=== PATIENT | male | born 1995 | race Caucasian/White ===

== ENCOUNTER 2016-10-22 08:54 | Observation (INO) | payer OTHER ==
[~2016-10-22] VITALS: Ht 182.9 cm; Wt 159.1 kg
[~2016-10-22 08:54] MED LIST: 0.9% SODIUM CHLORIDE 10 ML VIAL IVP ONE; CeFAZolin 2 GM/DEXTROSE 50 ML IV ONE; DEXAMETHASONE SOD PHOS 4 MG/ML VIAL IVP ONE; FentaNYL CITRATE-PF 250 MCG/5 ML VIAL IVP ONE; GUM MASTIC/STORAX/MSAL/ALCOHOL LIQUID 0.67 ML VIAL TP ONE; LIDOCAINE HCL/PF 2% 5 ML VIAL IM ONE; MIDAZOLAM HCL 2 MG/2 ML VIAL IVP ONE; ONDANSETRON HCL 4 MG/2 ML VIAL IVP ONE; PROPOFOL 1% 20 ML VIAL IVP ONE; RINGERS SOLUTION,LACTATED 1,000 ML IV ONE; SUCCINYLCHOLINE CHLORIDE 20 MG/ML 10 ML VIAL IVP ONE
[2016-10-22] MEDS ORDERED: RINGERS SOLUTION,LACTATED 1,000 ML IV ONE (09:00)
[2016-10-22 09:32] LABS: BASOPHILS % (AUTO) 0.6 % (0.0-2.0); EOSINOPHILS % (AUTO) 2.1 % (1.0-6.0); HEMATOCRIT 46.4 % (41-53); HEMOGLOBIN 14.9 g/dL (13.5-17.5); LYMPHOCYTES # (AUTO) 3.9 K/uL (1.0-4.8); LYMPHOCYTES % (AUTO) 37.7 % (22.0-44.0); MEAN CORPUSCULAR HEMOGLOBIN 26.4 pg (26.0-34.0); MEAN CORPUSCULAR HGB CONC 32.2 G/dL (31.0-37.0); MEAN CORPUSCULAR VOLUME 82 fL (80-100); MONOCYTES # (AUTO) 0.8 K/uL (0.1-1.0); MONOCYTES % (AUTO) 7.6 % (2.0-9.0); NEUTROPHILS # (AUTO) 5.4 K/uL (1.8-7.7); PLATELET COUNT (AUTO) 258 K/uL (150-450); RED BLOOD CELL COUNT(AUTO) 5.66 MIL/uL (4.50-5.90); RED CELL DISTRIBUTION WIDTH 14.5 % (11.5-14.5); WHITE BLOOD COUNT (AUTO) 10.5 K/uL (4.5-11.0)
[2016-10-22] MEDS: BUPIVACAINE HCL/PF 0.5% 30 ML VIAL ONE ×2 (09:32→11:37)
[2016-10-22] MEDS: VANCOMYCIN HCL 1 GM/VIAL ONE ×2 (09:32→11:37)
[2016-10-22 09:40] LABS: ANION GAP 10 mmol/L (8-16); CALCIUM, TOTAL 8.6 mg/dL (8.8-10.5); CARBON DIOXIDE 25 mmol/L (22-29); CHLORIDE 105 mmol/L (98-107); CREATININE 0.91 mg/dL (0.60-1.30); GLOMERULAR FILTR. RATE CALC > 60 mL/min (>60); POTASSIUM 3.9 mmol/L (3.5-5.1); SODIUM SERUM 140 mmol/L (136-145); UREA NITROGEN, BLOOD 10 mg/dL (7-18)
[2016-10-22 09:44] LABS: INR 0.9 (0.9-1.1)
[2016-10-22 09:46] LABS: ALANINE AMINOTRANSFERASE 43 U/L (12-78); ALBUMIN 3.5 g/dL (3.4-5.0); ASPARTATE AMINOTRANSFERASE 30 U/L (15-37); BILIRUBIN,TOTAL 0.8 mg/dL (0.1-1.0); TOTAL PROTEIN, SERUM 7.3 g/dL (6.4-8.2)
[2016-10-22] MEDS ORDERED: DiphenhydrAMINE HCL 50 MG/ML VIAL IVP PRN (10:45)
[2016-10-22] MEDS ORDERED: DEXAMETHASONE SOD PHOS 4 MG/ML VIAL IVP PRN (10:45)
[2016-10-22] MEDS ORDERED: MAG HYDROX/AL HYDROX/SIMETH 30 ML SUSP UDCUP PO PRN (10:45)
[2016-10-22] MEDS ORDERED: ZOLPIDEM TARTRATE 10 MG TABLET PO PRN (10:45)
[2016-10-22] MEDS ORDERED: MEPERIDINE-PF 25 MG/ML SYRINGE IVP PRN (11:30)
[2016-10-22] MEDS ORDERED: FentaNYL CITRATE-PF 100 MCG/2 ML VIAL IVP PRN (11:30)
[2016-10-22] MEDS ORDERED: HYDROmorphone 2 MG/ML SYRINGE IVP PRN (11:30)
[2016-10-22] MEDS ORDERED: ZOLPIDEM TARTRATE 5 MG TABLET PO PRN (11:30)
[2016-10-22] MEDS ORDERED: ONDANSETRON HCL 4 MG/2 ML VIAL IVP PRN (11:30)
[2016-10-22] MEDS ORDERED: CYCLOBENZAPRINE HCL 10 MG TABLET PO PRN (11:30)
[2016-10-22] MEDS ORDERED: BUPIVACAINE LIPOSOME/PF 1.3%-13.3MG/ML SUSPENSION 10 ML VIAL INJ ONE (11:30)
[2016-10-22] MEDS ORDERED: PROMETHAZINE HCL 25 MG/ML VIAL IM PRN (11:30)
[2016-10-22] MEDS ORDERED: BUPIVACAINE HCL/PF 0.5% 30 ML VIAL ONE (11:32)
[2016-10-22] MEDS ORDERED: VANCOMYCIN HCL 500 MG/VIAL ONE (11:32)
[2016-10-22 13:30] VITALS: BP 140/75
[2016-10-22] MEDS: HYDROmorphone 2 MG/ML SYRINGE IVP PRN ×2 (14:40→19:56)
[2016-10-22] MEDS: BENZOCAINE/MENTHOL LOZENGE [8 LOZENGES/PACKET] PO PRN (15:10)
[2016-10-22] MEDS: ACETAMINOPHEN 1000 MG/ISO-OSM 100 ML IV SCH ×2 (16:40→23:22)
[2016-10-22 17:30] VITALS: BP 129/58
[2016-10-22] MEDS: DOCUSATE SODIUM 100 MG CAPSULE PO SCH (19:55)
[2016-10-22 20:00] VITALS: BP 128/58
[2016-10-22 23:47] VITALS: BP 125/62
[2016-10-23] MEDS: HYDROmorphone 2 MG/ML SYRINGE IVP PRN ×4 (01:23→13:28)
[2016-10-23] MEDS: ACETAMINOPHEN 1000 MG/ISO-OSM 100 ML IV SCH (04:47)
[2016-10-23] MEDS: OXYGEN THERAPY IH SCH ×2 (04:48→08:00)
[2016-10-23 04:55] VITALS: BP 124/68
[2016-10-23 08:10] VITALS: BP 127/64
[2016-10-23] MEDS: DOCUSATE SODIUM 100 MG CAPSULE PO SCH (08:13)
[2016-10-23] MEDS: OxyCODONE HCL/ACETAMINOPHEN 10-325 MG TABLET PO PRN ×2 (11:26→16:09)
[2016-10-23 11:33] VITALS: BP 151/90
[2016-10-23] MEDS: BENZOCAINE/MENTHOL LOZENGE [8 LOZENGES/PACKET] PO PRN (12:01)
[2016-10-23 16:34] VITALS: BP 129/64
== END 2016-10-23 17:19 | disposition home or self-care (01) ==
LOC: 4E 08:54
PROVIDERS: ADMIT Orthopaedic Surgery Orthopaedic Surgery of the Spine; ATTEND Orthopaedic Surgery Orthopaedic Surgery of the Spine
DX: M51.27 Other intervertebral disc displacement, lumbosacral region (principal); E66.9 Obesity, unspecified
CPT/HCPCS: 36415; 63005; 63030; 80053; 85025; 85610; 85730; 87081; 96374; 96375; 96376 ×2; 97116; 97161; 97165; 97530; 97535; G0238; G0378 ×2; J0131 ×2; J0330; J0690; J1100; J1170 ×2; J2250; J2405; J2704; J3010; J3370 ×2; J3490 ×2; J7120